=== PATIENT | female | born 1950 | race Caucasian/White ===

== ENCOUNTER 2018-05-09 11:23 | Inpatient (IN) ==
--- NOTE | 2018-05-09 11:44 | Emergency Department Note ---
Disposition Clinical Impression: Elevated d-dimer, Elevated brain natriuretic peptide (BNP) level Dyspnea Qualifiers: Dyspnea type: orthopnea Qualified Code(s): R06.01 - Orthopnea CHF exacerbation Qualifiers: Heart failure type: unspecified Qualified Code(s): I50.9 - Heart failure, unspecified Disposition: Admitted As Inpatient Condition: Good Referrals: Sara Palencia, FINANCIAL UNDERWRITER [Primary Care Provider] - Forms: ED Satisfaction Letter Time of Disposition: 14:05 General Adult HPI - General Stated complaint: VERONICA Time Seen by Provider: 05/09/18 11:25 Source: patient, EMS Mode of arrival: EMS Limitations: no limitations Nursing Notes Reviewed: Yes Vital Signs Reviewed: Yes - History of Present Illness HPI Narrative: Patient is a 67 year old female presents emergency department for shortness of breath. Patient states is been ongoing for a couple weeks. Patient states that her shortness of breath seems to be getting worse. Patient states that she does have a history of congestive heart failure when she lays flat her symptoms do get worse. Patient states that she really has not been coughing or having having any chest pain. Patient states that she does not have a history of COPD. Patient states that her shortness of breath gets worse when she lays flat. Patient states that she has been having to sleep somewhat upright. Pain Scale: 0 - Related Data Home Medications Medication Instructions Recorded Confirmed Albuterol Sulfate [Ventolin Hfa] 18 gm IH QID 05/09/18 05/09/18 Aspirin [Adult Aspirin Regimen] 81 mg PO DAILY 05/09/18 05/09/18 Carvedilol [Coreg] 25 mg PO BID 05/09/18 05/09/18 FLUoxetine HCl [Sarafem] 20 mg PO DAILY 05/09/18 05/09/18 Glimepiride [Amaryl] 4 mg PO QAM 05/09/18 05/09/18 Metformin HCl [Glucophage] 1,000 mg PO BIDWM 05/09/18 05/09/18 Pravastatin Sodium [Pravachol] 80 mg PO DAILY 05/09/18 05/09/18 Spironolactone [Aldactone] 25 mg PO BID 05/09/18 05/09/18 Tizanidine HCl 4 mg PO HS 05/09/18 05/09/18 traZODone [TraZODone] 50 mg PO HS 05/09/18 05/09/18 Allergies Allergy/AdvReac Type Severity Reaction Status Date / Time No Known Allergies Allergy Verified 05/09/18 14:04 All systems ED: reviewed and negative except as stated. Constitutional: Denies: fever Cardiovascular: Denies: chest pain Respiratory: Reports: cough, dyspnea, sputum production Gastrointestinal: Denies: abdominal pain, nausea, vomiting Past Medical History - Past Medical History Medical history: Reports: CHF, diabetes, hyperlipidemia, myocardial infarction Surgical history: Reports: non-contributory Psychiatric history: Reports: no psych history - Social History Smoking Status: Former smoker Smokeless Tobacco Status: No Alcohol use: Reports: none Drug use: Reports: none Physical Exam - General Limitations: no limitations General appearance: alert Course Vital Signs Temperature 98.8 F 05/09/18 11:28 Pulse Rate 55 05/09/18 11:28 Respiratory Rate 22 05/09/18 11:28 Blood Pressure 152/55 05/09/18 11:28 O2 Sat by Pulse Oximetry 93 05/09/18 11:28 Temperature 98.8 F 05/09/18 11:28 Pulse Rate 52 05/09/18 13:55 Respiratory Rate 16 05/09/18 13:55 Blood Pressure 136/62 05/09/18 13:55 O2 Sat by Pulse Oximetry 93 05/09/18 13:55 Oxygen Delivery Oxygen Delivery Nasal Cannula Medical Decision Making - MDM Narrative Medical decision making narrative: Due the patient presents emergency room with increased shortness breath obtain basic laboratory testing as well as chest x-ray EKG. did have a d-dimer that was elevated at 831. A CTA was performed of the chest which showed no evidence of pulmonary emboli. There was evidence of interstitial edema. Patient does have a mildly elevated BNP of 117. This is above the patient's baseline. Patient does have some mild peripheral edema. Due to the patient having history of orthopnea and shortness of breath with these findings on laboratory and imaging testing I feel this is likely a CHF exacerbation. Patient was given 40 mg of IV Lasix. Patient will require admission to the hospital for further evaluation and management. I called and spoke with the admitting hospitalist and he is accepted the patient to their service. Patient be admitted to the hospital this time for further evaluation management. - Medical Records Medical records reviewed: Yes I reviewed the patient's medical records. - Lab Data Lab results reviewed: Yes I reviewed the patient's lab results. Result diagrams: 05/09/18 11:55 05/09/18 11:55 Lab Results 05/09/18 05/09/18 05/09/18 Range/Units 11:55 11:55 11:55 WBC 4.9 (4.3-11.1) K/mcL RBC 4.48 (3.82-4.97) M/mcL Hgb 11.7 (11.5-15.4) g/dL Hct 38.7 (35.3-44.9) % MCV 86.4 (83.0-100.0) fL MCH 26.1 L (28.0-33.3) pg MCHC 30.2 L (31.6-35.5) g/dL RDW 14.4 (11.5-14.5) % Plt Count 199 (140-400) K/mcL MPV 10.4 (9.4-12.4) fL Immature Gran % 0.2 (0-4) % Seg Neutrophils % 70.8 % Lymphocytes % 20.3 % Monocytes % 6.7 % Eosinophils % 1.8 % Basophils % 0.2 % Neutrophils # 3.5 (1.6-8.9) K/mcL Lymphocytes # 1.0 (0.6-4.6) K/mcL Monocytes # 0.3 (0.0-1.3) K/mcL Eosinophils # 0.1 (0.0-0.6) K/mcL Basophils # 0.0 (0.0-0.2) K/mcL D-Dimer 816 H (0-500) ng/mLFEU Sodium 139 (136-145) mEq/L Potassium 4.9 (3.5-5.1) mEq/L Chloride 103 (98-107) mEq/L Carbon Dioxide 29 (23-29) mEq/L BUN 24 H (8-23) mg/dL Creatinine 0.95 (0.60-1.20) mg/dL Est GFR ( Amer) > 60 (> 60) Est GFR (Non-Af Amer) 59 L (> 60) BUN/Creatinine Ratio 25 (6-26) Glucose 192 H (70-105) mg/dL Calculated Osmolality 297 (280-300) Lactic Acid (0.5-2.2) mmol/L Calcium 9.6 (8.6-10.3) mg/dL Troponin I < 0.03 (< 0.04) ng/mL B-Natriuretic Peptide (Less than 100) pg/mL 05/09/18 05/09/18 05/09/18 Range/Units 11:55 11:55 13:51 WBC (4.3-11.1) K/mcL RBC (3.82-4.97) M/mcL Hgb (11.5-15.4) g/dL Hct (35.3-44.9) % MCV (83.0-100.0) fL MCH (28.0-33.3) pg MCHC (31.6-35.5) g/dL RDW (11.5-14.5) % Plt Count (140-400) K/mcL MPV (9.4-12.4) fL Immature Gran % (0-4) % Seg Neutrophils % % Lymphocytes % % Monocytes % % Eosinophils % % Basophils % % Neutrophils # (1.6-8.9) K/mcL Lymphocytes # (0.6-4.6) K/mcL Monocytes # (0.0-1.3) K/mcL Eosinophils # (0.0-0.6) K/mcL Basophils # (0.0-0.2) K/mcL D-Dimer (0-500) ng/mLFEU Sodium (136-145) mEq/L Potassium (3.5-5.1) mEq/L Chloride (98-107) mEq/L Carbon Dioxide (23-29) mEq/L BUN (8-23) mg/dL Creatinine (0.60-1.20) mg/dL Est GFR ( Amer) (> 60) Est GFR (Non-Af Amer) (> 60) BUN/Creatinine Ratio (6-26) Glucose (70-105) mg/dL Calculated Osmolality (280-300) Lactic Acid 1.2 0.8 (0.5-2.2) mmol/L Calcium (8.6-10.3) mg/dL Troponin I (< 0.04) ng/mL B-Natriuretic Peptide 117 H (Less than 100) pg/mL - Radiology Data Radiology results reviewed: Yes I reviewed the patient's radiology results. Chest X-Ray 05/09/18 11:32 IMPRESSION: Mild interstitial changes within the lung bases with possible small effusion. The findings may be related to mild interstitial edema or infiltrate. D/ / Trevon Garcia MD / Trevon Garcia MD Interpreting Provider: Trevon Garcia MD Chest CTA 05/09/18 12:45 IMPRESSION: 1. No evidence of pulmonary embolism 2. Thickened interlobular septa suggests interstitial pulmonary edema 3. Trace pleural and pericardial effusions D/ / Dawood Rodriguez MD / Dawood Rodriguez MD Interpreting Provider: Dawood Rodriguez MD - EKG Data EKG #1 EKG attestation: Yes I reviewed and interpreted this EKG. EKG results narrative: EKG shows a sinus bradycardia that is irregular. NV interval is 152, QRS duration 99, QTC of 395. No evidence of STEMI and EKG. This is compared to previous EKG on 05/04/18. EKG #2 EKG attestation: Yes I reviewed and interpreted this EKG. EKG results narrative: EKG shows a sinus rhythm at a rate of 50 beats minute, NV interval of 145, QRS duration 87, QTc of 422. EKG was obtained at 1405.
[2018-05-09 12:06] LABS: Basophils % 0.2 %; Eosinophils # 0.1 K/mcL (0.0-0.6); Eosinophils % 1.8 %; Hematocrit 38.7 % (35.3-44.9); Hemoglobin 11.7 g/dL (11.5-15.4); Immature Granulocytes % 0.2 % (0-4); Lymphocytes % 20.3 %; Mean Corpuscular HGB Conc 30.2 g/dL (31.6-35.5); Mean Corpuscular Hemoglobin 26.1 pg (28.0-33.3); Mean Corpuscular Volume 86.4 fL (83.0-100.0); Mean Platelet Volume 10.4 fL (9.4-12.4); Monocytes # 0.3 K/mcL (0.0-1.3); Monocytes % 6.7 %; Neutrophils # 3.5 K/mcL (1.6-8.9); Platelet Count 199 K/mcL (140-400); Red Blood Count 4.48 M/mcL (3.82-4.97); Red Cell Distribution Width 14.4 % (11.5-14.5); Segmented Neutrophils % 70.8 %
[2018-05-09 12:27] LABS: Troponin I < 0.03 ng/mL (< 0.04)
[2018-05-09 12:37] LABS: BUN/Creatinine Ratio 25 (6-26); Blood Urea Nitrogen 24 mg/dL (8-23); Calcium 9.6 mg/dL (8.6-10.3); Carbon Dioxide 29 mEq/L (23-29); Chloride 103 mEq/L (98-107); Glucose 192 mg/dL (70-105); Osmolality,Calculated 297 (280-300); Potassium 4.9 mEq/L (3.5-5.1); Sodium 139 mEq/L (136-145); eGFR For Non-African Americans 59 (> 60)
[2018-05-09] MEDS ORDERED: Isovue-370 500 ML INFUS..BTL IV ONE (12:45)
[2018-05-09] MEDS ORDERED: methylPREDNISolone 125 MG/2 ML VIAL IVP ONE (12:45)
[2018-05-09] MEDS ORDERED: Ipratropium/Albuterol Neb 3 ML IH ONE (12:45)
--- NOTE | 2018-05-09 13:40 | Emergency Department Note ---
Disposition Clinical Impression: Dyspnea Disposition: Admitted As Inpatient Condition: Good Referrals: Sara Palencia, SERGE [Primary Care Provider] - Time of Disposition: 13:40 General Adult HPI - General Chief complaint: ED Shortness of Breath/Dyspnea Stated complaint: VERONICA Time Seen by Provider: 05/09/18 11:25 Source: patient, EMS Mode of arrival: EMS Limitations: no limitations - History of Present Illness Pain Scale: 0 - Related Data Previous Rx's Medication Instructions Recorded Amoxicillin [Amoxil] 2 cap PO Q8HR #30 capsule 06/25/15 Cefdinir [Omnicef] 300 mg PO BID #20 capsule 07/14/15 Hydrocodone/Acetaminophen [[place] 1 tab PO Q6H PRN #10 tab 07/14/15 5-325 Tablet] HYDROcodone/Acet 5/325 mg [[place] 1 - 2 tab PO Q6H PRN 3 Days #12 tab 10/08/17 5-325 mg] Allergies Allergy/AdvReac Type Severity Reaction Status Date / Time No Known Allergies Allergy Verified 06/25/15 16:50 Past Medical History - Past Medical History Medical history: Reports: CHF, diabetes, hyperlipidemia, myocardial infarction Surgical history: Reports: non-contributory Psychiatric history: Reports: no psych history - Social History Smoking Status: Former smoker Smokeless Tobacco Status: No Alcohol use: Reports: none Drug use: Reports: none Physical Exam - General Limitations: no limitations General appearance: alert Course Vital Signs Temperature 98.8 F 05/09/18 11:28 Pulse Rate 55 05/09/18 11:28 Respiratory Rate 22 05/09/18 11:28 Blood Pressure 152/55 05/09/18 11:28 O2 Sat by Pulse Oximetry 93 05/09/18 11:28 Temperature 98.8 F 05/09/18 11:28 Pulse Rate 55 05/09/18 11:28 Respiratory Rate 22 05/09/18 11:28 Blood Pressure 152/55 05/09/18 11:28 O2 Sat by Pulse Oximetry 94 05/09/18 11:35 Oxygen Delivery Oxygen Delivery Nasal Cannula Medical Decision Making - Lab Data Result diagrams: 05/09/18 11:55 05/09/18 11:55 Lab Results 05/09/18 05/09/18 05/09/18 Range/Units 11:55 11:55 11:55 WBC 4.9 (4.3-11.1) K/mcL RBC 4.48 (3.82-4.97) M/mcL Hgb 11.7 (11.5-15.4) g/dL Hct 38.7 (35.3-44.9) % MCV 86.4 (83.0-100.0) fL MCH 26.1 L (28.0-33.3) pg MCHC 30.2 L (31.6-35.5) g/dL RDW 14.4 (11.5-14.5) % Plt Count 199 (140-400) K/mcL MPV 10.4 (9.4-12.4) fL Immature Gran % 0.2 (0-4) % Seg Neutrophils % 70.8 % Lymphocytes % 20.3 % Monocytes % 6.7 % Eosinophils % 1.8 % Basophils % 0.2 % Neutrophils # 3.5 (1.6-8.9) K/mcL Lymphocytes # 1.0 (0.6-4.6) K/mcL Monocytes # 0.3 (0.0-1.3) K/mcL Eosinophils # 0.1 (0.0-0.6) K/mcL Basophils # 0.0 (0.0-0.2) K/mcL D-Dimer 816 H (0-500) ng/mLFEU Sodium 139 (136-145) mEq/L Potassium 4.9 (3.5-5.1) mEq/L Chloride 103 (98-107) mEq/L Carbon Dioxide 29 (23-29) mEq/L BUN 24 H (8-23) mg/dL Creatinine 0.95 (0.60-1.20) mg/dL Est GFR ( Amer) > 60 (> 60) Est GFR (Non-Af Amer) 59 L (> 60) BUN/Creatinine Ratio 25 (6-26) Glucose 192 H (70-105) mg/dL Calculated Osmolality 297 (280-300) Lactic Acid (0.5-2.2) mmol/L Calcium 9.6 (8.6-10.3) mg/dL Troponin I < 0.03 (< 0.04) ng/mL B-Natriuretic Peptide (Less than 100) pg/mL 05/09/18 05/09/18 Range/Units 11:55 11:55 WBC (4.3-11.1) K/mcL RBC (3.82-4.97) M/mcL Hgb (11.5-15.4) g/dL Hct (35.3-44.9) % MCV (83.0-100.0) fL MCH (28.0-33.3) pg MCHC (31.6-35.5) g/dL RDW (11.5-14.5) % Plt Count (140-400) K/mcL MPV (9.4-12.4) fL Immature Gran % (0-4) % Seg Neutrophils % % Lymphocytes % % Monocytes % % Eosinophils % % Basophils % % Neutrophils # (1.6-8.9) K/mcL Lymphocytes # (0.6-4.6) K/mcL Monocytes # (0.0-1.3) K/mcL Eosinophils # (0.0-0.6) K/mcL Basophils # (0.0-0.2) K/mcL D-Dimer (0-500) ng/mLFEU Sodium (136-145) mEq/L Potassium (3.5-5.1) mEq/L Chloride (98-107) mEq/L Carbon Dioxide (23-29) mEq/L BUN (8-23) mg/dL Creatinine (0.60-1.20) mg/dL Est GFR ( Amer) (> 60) Est GFR (Non-Af Amer) (> 60) BUN/Creatinine Ratio (6-26) Glucose (70-105) mg/dL Calculated Osmolality (280-300) Lactic Acid 1.2 (0.5-2.2) mmol/L Calcium (8.6-10.3) mg/dL Troponin I (< 0.04) ng/mL B-Natriuretic Peptide 117 H (Less than 100) pg/mL Attestation Statement - Attestation Attestation: I examined this patient and my medical decision-making was reviewed with the Resident Physician. I agree with the documented findings, disposition and treatment plan as described except to the extent set forth below. 67 year old female presents to the ED with complaints of dyspnea and does not waer supplemental oxygen at home and has been experiencing increased exxertional dyspnea and cough at home. Gudelia sureshntly she is being ecvaluatd for COPD and has an elevated D-dimer and we will obtain a CTA to rule out PE and will likely be admitted for COPD excebration or r/o ACS workup.
[2018-05-09] MEDS ORDERED: Furosemide 40 MG/4 ML VIAL IVP ONE (13:52)
[2018-05-09] MEDS ORDERED: Naloxone 0.4 MG/ML INJ IVP PRN (14:44)
--- NOTE | 2018-05-09 17:55 | Internal Med History&Physical ---
Date of Encounter: 05/09/18 Time of Encounter: 17:30 Internal Medicine - H&P: HPI Chief complaint: Shortness of breath of 3 weeks duration History of present illness: Ms. Lloyd is a 67 year old female with pmh of diastolic CHF, diabetes, hyperlipidemia presenting with complaints of shortness of breath and lower extremity swelling of 3 weeks duration. Patient says she takes lasix at home and has been compliant. She complains of progressively worsening shortness of breath with decreased exercise tolerance. She woke up this am and couldn't breathe at around 3am and that's why she came to the ER. She denies any chest pain, fevers or chills. In the ER, a chest xray was done showing pulmonary edema and an effusion. She is being admitted for acute CHF Past Med Surg Social Fam HX - Past Medical History Medical history: CHF, diabetes, hyperlipidemia, myocardial infarction Psychiatric history: no psych history - Past Surgical History Surgical History: non-contributory - Social History Smoking Status: Former smoker Smokeless Tobacco Status: No Alcohol use: none Drug use: none - Family History Mother Age: 84 Living Status: Still Living Hx Family Cardiac Disorders: Yes Hx Family Respiratory Disorders: Yes Hx Family Cancer: No Internal Medicine - H&P: Meds Albuterol Sulfate [Ventolin Hfa] 18 gm IH QID 05/09/18 [History] Aspirin [Adult Aspirin Regimen] 81 mg PO DAILY 05/09/18 [History] Carvedilol [Coreg] 25 mg PO BID 05/09/18 [History] FLUoxetine HCl [Sarafem] 20 mg PO DAILY 05/09/18 [History] Glimepiride [Amaryl] 4 mg PO QAM 05/09/18 [History] Metformin HCl [Glucophage] 1,000 mg PO BIDWM 05/09/18 [History] Pravastatin Sodium [Pravachol] 80 mg PO DAILY 05/09/18 [History] Spironolactone [Aldactone] 25 mg PO BID 05/09/18 [History] Tizanidine HCl 4 mg PO HS 05/09/18 [History] traZODone [TraZODone] 50 mg PO HS 05/09/18 [History] Allergy/AdvReac Type Severity Reaction Status Date / Time No Known Allergies Allergy Verified 05/09/18 14:04 All Systems PM: A 10-system review of systems was performed and is negative for pertinent findings except as documented above in the HPI. - Constitutional Constitutional: no chills, no fever(s), no night sweats - EENT Eyes: no change in vision, no discharge, no pain, no photophobia Ears: no ear discharge, no ear pain, no tinnitus Nose, mouth and throat: no dysphagia, no nasal discharge, no neck pain, no sore throat - Cardiovascular Cardiovascular ROS IM: dyspnea, no chest pain, no diaphoresis, no lightheadedness, no palpitations, no syncope - Respiratory Respiratory: dyspnea, no cough, no wheezing, no excessive phlegm production - Gastrointestinal Gastrointestinal: no abdominal pain, no diarrhea, no hematemesis, no hematochezia, no melena, no nausea, no vomiting - Genitourinary Genitourinary: no change in urinary stream, no dysuria, no flank pain, no hematuria - Musculoskeletal Musculoskeletal ROS IM: no numbness, no tingling - Integumentary Integumentary IM: no rash, no unusual bruising - Neurological Neurological ROS: no confusion, no convulsions, no focal weakness, no numbness, no tingling, no tremor(s) - Hematologic/Lymphatic Hematologic/Lymphatic: no easy bruising - Constitutional Vitals: Temp Pulse Resp BP Pulse Ox 98.6 F 56 16 149/78 90 05/09/18 15:31 18 15:31 05/09/18 16:00 05/09/18 15:31 05/09/18 16:00 Exam: NAD - Head Head exam: Present: atraumatic, normocephalic - Eye Eye exam: Present: PERRL, conjuntiva pink, sclera anicteric Pupils: Present: PERRL - Neck Neck exam general surgery: Present: supple, trachea midline. Absent: lymphadenopathy - Respiratory Respiratory exam: Present: decreased breath sounds. Absent: accessory muscle use, rales, rhonchi, wheezes Additional comments: Bilateral crackles - Cardiovascular Cardiovascular exam: Present: RRR, +S1, +S2. Absent: diastolic murmur, gallop, rubs, systolic murmur - GI/Abdominal GI/Abdominal exam: Present: normal bowel sounds, soft, no peritoneal signs. Absent: distended, tenderness - Extremities Exam Extremities exam: Present: warm, radial pulses palpable and symmetrical. Absent: calf tenderness, cyanotic, pedal edema - Neurological Exam Neurological exam: Present: CN II-XII intact, oriented X3, no focal deficits. Absent: pronater drift, facial droop, speech deficit - Skin Skin exam: Present: dry, intact Internal Med - H&P Results - Labs CBC & Chem 7: 05/09/18 11:55 05/09/18 11:55 Labs: Short CBC 05/09/18 Range/Units 11:55 WBC 4.9 (4.3-11.1) K/mcL Hgb 11.7 (11.5-15.4) g/dL Hct 38.7 (35.3-44.9) % Plt Count 199 (140-400) K/mcL Neutrophils # 3.5 (1.6-8.9) K/mcL BMP 05/09/18 11:55 Sodium 139 Potassium 4.9 Chloride 103 Carbon Dioxide 29 BUN 24 H Creatinine 0.95 Glucose 192 H Calcium 9.6 Cardiac Enzymes 05/09/18 Range/Units 11:55 Troponin I < 0.03 (< 0.04) ng/mL - Impressions ITS Impressions Chest X-Ray 05/09/18 11:32 IMPRESSION: Mild interstitial changes within the lung bases with possible small effusion. The findings may be related to mild interstitial edema or infiltrate. D/ / Trevon Garcia MD / Trevon Garcia MD Interpreting Provider: Trevon Garcia MD Chest CTA 05/09/18 12:45 IMPRESSION: 1. No evidence of pulmonary embolism 2. Thickened interlobular septa suggests interstitial pulmonary edema 3. Trace pleural and pericardial effusions D/ / Dawood Rodriguez MD / Dawood Rodriguez MD Interpreting Provider: Dawood Rodriguez MD - Assessment and plan (1) CHF exacerbation Current Visit: Yes Status: Acute Assessment and plan: Pt has acute worsening of chronic diastolic CHF. will start on lasix 40mg IV BID Continue beta blockers. Monitor ins and outs. Cardiac diet. Daily weights Qualifiers: Heart failure type: diastolic Qualified Code(s): I50.33 - Acute on chronic diastolic (congestive) heart failure (2) Diabetes Current Visit: Yes Status: Acute Assessment and plan: Continue glimepiride and sliding scale insulin Qualifiers: Diabetes mellitus type: type 2 Qualified Code(s): E11.9 - Type 2 diabetes mellitus without complications (3) Dyslipidemia Current Visit: Yes Status: Acute Assessment and plan: Resume pravastatin (4) DVT prophylaxis Current Visit: Yes Status: Acute Assessment and plan: Continue heparin - Time Spent With Patient Total time spent is greater than 50% in coordination of care (as documented) at patient's floor/unit and/or counseling patient:
[2018-05-09] MEDS ORDERED: D5% in Water 1,000 ML IVC PRN (18:14)
[2018-05-09] MEDS ORDERED: *HR* Dextrose 50 % in Water (Syg) 50 ML SYRINGE IVP PRN (18:14)
[2018-05-09] MEDS ORDERED: Dextrose Gel 15 GM/37.5 ML TUBE PO PRN ×2 (18:14)
[2018-05-09] MEDS: Insulin LISPRO 300 UNITS/3 ML VIAL SQ SCH ×2 (18:38→20:43)
[2018-05-09] MEDS: *HR* Heparin 5,000 UNIT/ML VIAL SQ SCH (18:40)
[2018-05-09] MEDS: Spironolactone 25 MG TABLET PO SCH (20:23)
[2018-05-09] MEDS: Furosemide 40 MG/4 ML VIAL IVP SCH (20:23)
[2018-05-09] MEDS: tiZANidine 4 MG TABLET PO SCH (20:24)
[2018-05-09] MEDS: traZODone 50 MG TABLET PO SCH (20:24)
[2018-05-10 04:53] LABS: Basophils % 0.2 %; Hematocrit 39.8 % (35.3-44.9); Immature Granulocytes % 0.3 % (0-4); Lymphocytes # 0.7 K/mcL (0.6-4.6); Lymphocytes % 11.6 %; Mean Corpuscular HGB Conc 30.2 g/dL (31.6-35.5); Mean Corpuscular Volume 86.3 fL (83.0-100.0); Mean Platelet Volume 10.7 fL (9.4-12.4); Monocytes # 0.3 K/mcL (0.0-1.3); Monocytes % 5.4 %; Neutrophils # 4.9 K/mcL (1.6-8.9); Platelet Count 246 K/mcL (140-400); Red Blood Count 4.61 M/mcL (3.82-4.97); Red Cell Distribution Width 14.2 % (11.5-14.5); Segmented Neutrophils % 82.5 %
[2018-05-10] MEDS: *HR* Heparin 5,000 UNIT/ML VIAL SQ SCH ×2 (04:56→18:03)
[2018-05-10 05:13] LABS: Calcium 9.8 mg/dL (8.6-10.3); Magnesium 1.9 mg/dL (1.6-2.6); Phosphorous 5.3 mg/dL (2.7-4.5); Potassium 4.5 mEq/L (3.5-5.1)
[2018-05-10] MEDS: Insulin LISPRO 300 UNITS/3 ML VIAL SQ SCH ×4 (07:52→20:25)
[2018-05-10] MEDS: Spironolactone 25 MG TABLET PO SCH (08:07)
[2018-05-10] MEDS: Aspirin Enteric Coated 81 MG Tablet PO SCH (08:07)
[2018-05-10] MEDS: FLUoxetine 20 MG CAPSULE PO SCH (08:07)
[2018-05-10] MEDS: *HR* Glimepiride 4 MG TABLET PO SCH (08:07)
[2018-05-10] MEDS: Furosemide 40 MG/4 ML VIAL IVP SCH (08:07)
--- NOTE | 2018-05-10 11:07 | Internal Med Progress Note ---
Hospitalist Progress Note - Encounter Date of Encounter: 05/10/18 Time of Encounter: 11:05 - Subjective Interval History: Ms. Lloyd is a 67 year old female with pmh of diastolic CHF, diabetes, hyperlipidemia, morbid obesity and possible sleep apnea pt presented to ER with complaints of shortness of breath and lower extremity swelling of 3 weeks dura tion. She complains of progressively worsening shortness of breath with decreased exercise tolerance. In the ER, a chest xray was done showing pulmonary edema and an effusion. 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 Started her on aggressive IV diuresis with Lasix. Patient states she is feeling little better today. Still having shortness of breath and dyspnea on exertion. Her bilateral lower extremity edema improved. Currently she is on 2 lit oxygen through nasal cannula - Exam Vitals: Temp Pulse Resp BP Pulse Ox 98.6 F 56 16 141/70 90 05/10/18 07:28 05/10/18 07:28 05/10/18 10:24 05/10/18 07:28 05/10/18 10:24 Exam: Gen: Alert, awake, Oriented to time,place and person Chest: Diminished breath sounds B/L, mild wheezing, No crackles, No rales Heart: S1S2+ RRR No murmurs Abd: Soft, NT, BS +, No organomegaly Ext: trace edema, pulses are palpable, No calf tenderness Neuro : Benign findings Skin: No rash. - Assessment and Plan (1) CHF exacerbation Current Visit: Yes Status: Acute Assessment and Plan: Reviewed her echocardiogram from 03/2018 which showed preserved LVEF and mild left ventricular diastolic dysfunction patient does have chronic diastolic dysfunction with the current exacerbation her symptoms improved with IV Lasix however her creatinine went up little bit today so will hold Lasix today and trend on Cr Cont home med ASA, beta kenyatta and Statin (2) Acute respiratory failure with hypoxia Current Visit: Yes Status: Acute Assessment and Plan: Due to CHF exacerbation also concerning for possible COPD/emphysema/hypoventilation syndrome/sleep apnea placed her on bronchodilator therapy May need home oxygen evaluation her current pulse oxy was 82 on RA which I personally checked (3) Dyslipidemia Current Visit: Yes Status: Acute Assessment and Plan: Resume pravastatin (4) DVT prophylaxis Current Visit: Yes Status: Acute Assessment and Plan: Continue heparin (5) ALIN (acute kidney injury) Current Visit: Yes Status: Acute Assessment and Plan: Due to aggressive diagnosis held Lasix and Aldactone avoid nephrotoxic medication (6) Diabetes Current Visit: Yes Status: Acute Assessment and Plan: Continue glimepiride and sliding scale insulin - Time Spent with Patient Total time spent is greater than 50% in coordination of care (as documented) at patient's floor/unit and/or counseling patient: Internal Medicine: Result - Labs CBC & Chem 7: 05/10/18 04:33 05/10/18 04:33 Labs: Short CBC 05/09/18 05/10/18 Range/Units 11:55 04:33 WBC 4.9 5.9 (4.3-11.1) K/mcL Hgb 11.7 12.0 (11.5-15.4) g/dL Hct 38.7 39.8 (35.3-44.9) % Plt Count 199 246 (140-400) K/mcL Neutrophils # 3.5 4.9 (1.6-8.9) K/mcL BMP 05/09/18 05/10/18 11:55 04:33 Sodium 139 138 Potassium 4.9 4.5 Chloride 103 95 L Carbon Dioxide 29 33 H BUN 24 H 34 H Creatinine 0.95 1.35 H Glucose 192 H 274 H Calcium 9.6 9.8 Cardiac Enzymes 05/09/18 Range/Units 11:55 Troponin I < 0.03 (< 0.04) ng/mL - ABG Interpretation ABG results: PT/INR, D-dimer D-Dimer 816 ng/mLFEU (0-500) H 05/09/18 11:55 - Impressions Impressions Chest X-Ray 05/09/18 11:32 IMPRESSION: Mild interstitial changes within the lung bases with possible small effusion. The findings may be related to mild interstitial edema or infiltrate. D/ / Trevon Garcia MD / Trevon Garcia MD Interpreting Provider: Trevon Garcia MD Chest CTA 05/09/18 12:45 IMPRESSION: 1. No evidence of pulmonary embolism 2. Thickened interlobular septa suggests interstitial pulmonary edema 3. Trace pleural and pericardial effusions D/ / Dawood Rodriguez MD / Dawood Rodriguez MD Interpreting Provider: Dawood Rodriguez MD Consult Discharge Plan - Plan Referrals: Sara Palencia, STOCK ORDER LISTER [Primary Care Provider] - (1) CHF exacerbation Qualifiers: Heart failure type: diastolic Qualified Code(s): I50.33 - Acute on chronic diastolic (congestive) heart failure (6) Diabetes Qualifiers: Diabetes mellitus type: type 2 Qualified Code(s): E11.9 - Type 2 diabetes mellitus without complications
[2018-05-10] MEDS: tiZANidine 4 MG TABLET PO SCH (21:29)
[2018-05-10] MEDS: traZODone 50 MG TABLET PO SCH (21:29)
[2018-05-11 04:01] LABS: Calcium 9.6 mg/dL (8.6-10.3); Potassium 4.2 mEq/L (3.5-5.1)
[2018-05-11] MEDS: *HR* Heparin 5,000 UNIT/ML VIAL SQ SCH (05:55)
[2018-05-11] MEDS: Aspirin Enteric Coated 81 MG Tablet PO SCH (08:57)
[2018-05-11] MEDS: *HR* Glimepiride 4 MG TABLET PO SCH (08:57)
[2018-05-11] MEDS: Insulin LISPRO 300 UNITS/3 ML VIAL SQ SCH ×2 (08:57→11:39)
[2018-05-11] MEDS: FLUoxetine 20 MG CAPSULE PO SCH (08:57)
[2018-05-11 11:17] VITALS: BP 126/62
--- NOTE | 2018-05-11 12:45 | Discharge Summary ---
- NOTES TO OUTPATIENT PROVIDER Notes to Outpatient Provider: f/u with PCP in one week. Please go for BMP on Tuesday. Stop taking Aldactone. We placed you on Lasix 20mg PO Daily, which you can start taking from Tuesday. Check daily weights if you gain more than 2 lbs please take an extra dose of Lasix. Date of Encounter: 05/11/18 Time of Encounter: 12:42 - Discharge Diagnosis (1) CHF exacerbation Priority: Primary Status: Acute Qualifiers: Heart failure type: diastolic Qualified Code(s): I50.33 - Acute on chronic diastolic (congestive) heart failure (2) Acute respiratory failure with hypoxia Priority: Primary Status: Acute (3) Dyslipidemia Priority: Secondary Status: Acute (4) DVT prophylaxis Priority: Secondary Status: Acute (5) ALIN (acute kidney injury) Priority: Secondary Status: Acute (6) Diabetes Priority: Secondary Status: Acute Qualifiers: Diabetes mellitus type: type 2 Qualified Code(s): E11.9 - Type 2 diabetes mellitus without complications Hospital course: Ms. Lloyd is a 67 year old female with pmh of diastolic CHF, diabetes, hyperlipidemia, morbid obesity and possible sleep apnea pt presented to ER with complaints of shortness of breath and lower extremity swelling of 3 weeks duration. She complains of progressively worsening shortness of breath with decreased exercise tolerance. In the ER, a chest xray was done showing pulmonary edema and an effusion. 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 Started her on aggressive IV diuresis with Lasix. Her bilateral lower extremity edema improved. Her SOB also improved. She is currently on 2 lit oxygen through nasal cannula, does need to go home on 2 lit o2. Her hypoxa us due to multifactorial with possible COPD/emphysema/hypoventilation syndrome/sleep apnea. She did have mild ALIN due to aggressive IV diuresis. Recommend to stop taking Aldactone, she can take Lasix from Tuesday. - Time Spent with Patient Total time spent providing and/or coordinating discharge services: - Discharge Medications Prescriptions: Furosemide [Lasix] 20 mg PO DAILY #30 tablet Home Medications: Albuterol Sulfate [Ventolin Hfa] 18 gm IH QID 05/09/18 [History] Aspirin [Adult Aspirin Regimen] 81 mg PO DAILY 05/09/18 [History] Carvedilol [Coreg] 25 mg PO BID 05/09/18 [History] FLUoxetine HCl [Sarafem] 20 mg PO DAILY 05/09/18 [History] Glimepiride [Amaryl] 4 mg PO QAM 05/09/18 [History] Metformin HCl [Glucophage] 1,000 mg PO BIDWM 05/09/18 [History] Pravastatin Sodium [Pravachol] 80 mg PO DAILY 05/09/18 [History] Tizanidine HCl 4 mg PO HS 05/09/18 [History] traZODone [TraZODone] 50 mg PO HS 05/09/18 [History] Furosemide [Lasix] 20 mg PO DAILY #30 tablet 05/11/18 [Rx] Allergies/Adverse Reactions: Allergy/AdvReac Type Severity Reaction Status Date / Time No Known Allergies Allergy Verified 05/09/18 14:04 Date of admission: 05/11/18 09:44 Primary care physician: Sara Palencia CNP Consults: 05/10/18 09:22 Consult to Nurse Navigator [CONS] Routine Comment: CHF 05/11/18 08:35 Consult to Physical Therapy [CONS] Routine Comment: Evaluate, develop and implement POC Reason for Consult: decreased stamina, 6 minute walk test for O2 qualification Does patient have active BEDREST order?: No Is patient medically & hemodynamically stable?: Yes Patient assessed for mobility or mobilized this visit?: Yes - Constitutional Vitals: Temp Pulse Resp BP Pulse Ox 98.4 F 48 17 126/62 94 05/11/18 11:15 05/11/18 11:15 05/11/18 11:15 05/11/18 11:15 05/11/18 11:15 General appearance: Present: cooperative, A&O X 3, answers questions appropriately Exam: Gen: Alert, awake, Oriented to time,place and person Chest: Diminished breath sounds B/L, No wheezing, No crackles, No rales Heart: S1S2+ RRR No murmurs Abd: Soft, NT, BS +, No organomegaly Ext: No edema, pulses are palpable, No calf tenderness Neuro : Benign findings Skin: No rash. - Patient Status Disposition: Home, Self-Care Condition: Good Overall status at discharge: patient is back to baseline - Ambulatory Orders Ambulatory Orders: Basic Metabolic Panel [CHEM] Time Frame: 05/15/18, Facility: [facility], Location: Lab - Discharge Instructions Follow Up With: Arie Friend MD [Partnered Physician] - 05/18/18 2:45 pm (Please arrive to appointment 30 minutes before appointment to fill out paperwork. Please bring all insurance cards, ID cards, and all medications within their containers. This office requires you to reschedule or cancel within 24 hours of appointment time. ) Additional Instructions: Call [facility] when you get home to have oxygen equipment delivered. [phone] - Diet and Activity Activity: increase activity as tolerated, wear oxygen at all times Diet: low salt diet
--- NOTE | 2018-05-11 18:34 | Electrocardiograph Report ---
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
--- NOTE | 2018-05-11 18:41 | Electrocardiograph Report ---
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
== END 2018-05-11 14:31 | disposition home or self-care (01) | DRG 291 ==
LOC: 3BNU 11:23 → EMEROOARM 11:23 → SUATTDRO 14:25 → 3BNU 15:15
PROVIDERS: ADMIT Student in an Organized Health Care Education/Training Program; ATTEND Family Medicine

== ENCOUNTER 2018-10-28 23:49 | Inpatient (IN) ==
--- NOTE | 2018-10-29 00:03 | Emergency Department Note ---
Disposition Clinical Impression: Elevated troponin Congestive heart failure Qualifiers: Heart failure type: unspecified Heart failure chronicity: acute on chronic Qualified Code(s): I50.9 - Heart failure, unspecified Disposition: Admitted As Inpatient Condition: Fair Referrals: NONE,PCP [Non-Partnered Physician] - Forms: ED Satisfaction Letter Time of Disposition: 01:38 SOB HPI - General Chief Complaint: ED Shortness of Breath/Dyspnea Stated Complaint: VERONICA/hx copd/chf Time Seen by Provider: 10/29/18 00:00 Source: patient Mode of arrival: ambulatory Limitations: no limitations Nursing Notes Reviewed: Yes Vital Signs Reviewed: Yes - History of Present Illness Patient is a 68-year-old female presenting with dyspnea. Patient has history of diabetes mellitus type 2, COPD, CHF, hypertension and hyperlipidemia. Over the past week, patient has had increased shortness of breath, she was seen by her primary care provider last week who increased her at home oxygen from 2 L nasal cannula to 4 L nasal cannula. She states this is not an changed her shortness of breath. This morning when she woke up, she had difficulty getting out of bed secondary to her dyspnea. When she went to the restroom, she was unable to get out of the bathroom secondary to this. She stated that she had to wait in the restroom until she was able to catch her breath. This continued throughout the day and became progressively worse. She does have to prop herself up with pillows which is gotten worse over the past week, she currently sleeps sitting straight up. She denies chest pain or diaphoresis, no nausea or vomiting. No recent fevers or chills. She is unchanged cough without production. No abdominal pain. No urinary symptoms. She has noticed increased lower extremity swelling. She has been taking her medications at home as prescribed. No recent medication changes. She has been using her nebulizer treatments at home. - Related Data Home Medications Medication Instructions Recorded Confirmed Albuterol Sulfate [Ventolin Hfa] 18 gm IH QID 05/09/18 10/29/18 Aspirin [Adult Aspirin Regimen] 81 mg PO DAILY 05/09/18 10/29/18 Carvedilol [Coreg] 25 mg PO BID 05/09/18 10/29/18 FLUoxetine HCl [Sarafem] 20 mg PO DAILY 05/09/18 10/29/18 Glimepiride [Amaryl] 4 mg PO QAM 05/09/18 10/29/18 Metformin HCl [Glucophage] 1,000 mg PO BIDWM 05/09/18 10/29/18 Pravastatin Sodium [Pravachol] 80 mg PO DAILY 05/09/18 10/29/18 traZODone [TraZODone] 50 mg PO HS 05/09/18 10/29/18 Allergies Allergy/AdvReac Type Severity Reaction Status Date / Time No Known Allergies Allergy Verified 10/28/18 23:59 All systems ED: reviewed and negative except as stated. Review of Systems: As Per HPI Constitutional: Denies: fever, chills ENT ED: Denies: congestion Cardiovascular: Reports: dyspnea on exertion, edema. Denies: chest pain, palpitations, syncope Respiratory: Reports: cough, dyspnea. Denies: wheezes, hemoptysis, sputum production Gastrointestinal: Denies: abdominal pain, nausea, vomiting, diarrhea, hematemesis Genitourinary: Denies: dysuria Musculoskeletal: Denies: back pain Integumentary: Denies: rash Neurological: Denies: headache, weakness, numbness, confusion Endocrine: Denies: fatigue Past Medical History - Past Medical History Medical history: Reports: CHF, COPD, diabetes, hyperlipidemia, myocardial infarction Surgical history: Reports: non-contributory Psychiatric history: Reports: no psych history - Social History Smoking Status: Former smoker Smokeless Tobacco Status: No Alcohol use: Reports: none Drug use: Reports: none Physical Exam - General Limitations: no limitations General appearance: alert, in no apparent distress - Head Head exam: atraumatic, normocephalic, normal inspection - Eye Eye exam: Present: normal appearance, PERRL, EOMI - ENT ENT exam: normal exam, normal oropharynx, mucous membranes moist - Neck Neck exam: Present: normal inspection, full ROM, trachea midline - Chest Chest inspection: Present: normal inspection, symmetric chest wall rise - Respiratory Respiratory exam: Present: prolonged expiratory phase (Patient with decreased breath sounds throughout, no crackles or wheezes are heard) - Cardiovascular Cardiovascular exam: Present: regular rate, normal rhythm, normal heart sounds - Abdominal Exam Abdominal exam: Present: soft, Non-Tender. Absent: tenderness, distention, guarding, rebound, rigidity - Extremities Exam Extremities exam: Present: full ROM, normal capillary refill, pedal edema (Patient with 1+ pitting edema to the bilateral lower extremities up to the catheter). Absent: tenderness - Expanded Lower Extremity Exam Neurovascular/Tendon exam: Absent: motor deficit, sensory deficit, tendon deficit - Back Exam Back exam: Present: normal inspection, full ROM. Absent: tenderness - Neurological Exam Neurological exam: Present: alert, oriented X3 - Psychiatric Psychiatric exam: Present: normal affect, normal mood - Skin Skin exam: Present: warm, dry, intact, normal color. Absent: diaphoresis, pallor Course Vital Signs Temperature 99.6 F 10/29/18 00:04 Pulse Rate 55 10/29/18 00:04 Respiratory Rate 26 10/29/18 00:04 Blood Pressure 162/57 10/29/18 00:04 O2 Sat by Pulse Oximetry 99 10/29/18 00:04 Temperature 99.6 F 10/29/18 00:05 Pulse Rate 65 10/29/18 01:00 Respiratory Rate 24 10/29/18 01:00 Blood Pressure 156/59 10/29/18 01:00 O2 Sat by Pulse Oximetry 100 10/29/18 01:00 Oxygen Delivery Oxygen Delivery Nasal Cannula Shortness of Breath/Dyspnea - [facility] Narrative Medical decision making narrative: Patient is a 68-year-old female presenting with shortness of breath. Patient has known history of CHF and COPD. Progressive shortness of breath for the past week, currently on 4 L nasal cannula chronically at home. Significant shortness of breath with any type of exertion. She is currently satting at 100% on 4 L C no cannula here in the ER, vital signs otherwise unremarkable. She does have decreased breath sounds throughout on examination. She does have lower leg swelling at 1+. EKG shows no acute ischemic changes. She adamantly denies any chest pain. Concern for COPD versus CHF exacerbation, patient will be given Lasix 40 mg IV, DuoNeb 3 as well as Solu-Medrol. No recent fever or chills, pneumonia less likely. Chest x-ray was performed which shows some mild pulmonary edema. This is fitting per clinical picture with elevated BNP. Troponin is also elevated 0.15, patient denies chest pain however we will give the patient aspirin and advocate for trending as the patient will be admitted. Patient's BMP relatively unremarkable, CBC does show a slight drop in hemoglobin within the last month now 9.7. Patient denies any active bleeding. Following breathing treatment, patient has slightly improved breathing. However, given patient's significant exertional dyspnea, admission is appropriate. At this point in time given significant shortness of breath, we will get the patient for CHF exacerbation as well as elevated troponin. Hospitalist has been paged at [phone]. Patient agrees with disposition. - Medical Records Medical records reviewed: Yes I reviewed the patient's medical records. - Lab Data Lab results reviewed: Yes I reviewed the patient's lab results. Result diagrams: 10/29/18 00:39 10/29/18 00:39 Lab Results 10/29/18 10/29/18 10/29/18 Range/Units 00:39 00:39 00:39 WBC 5.3 (4.3-11.1) K/mcL RBC 3.61 L (3.82-4.97) M/mcL Hgb 9.7 L (11.5-15.4) g/dL Hct 32.1 L (35.3-44.9) % MCV 88.9 (83.0-100.0) fL MCH 26.9 L (28.0-33.3) pg MCHC 30.2 L (31.6-35.5) g/dL RDW 12.9 (11.5-14.5) % Plt Count 197 (140-400) K/mcL MPV 10.5 (9.4-12.4) fL Immature Gran % 0.2 (0-4) % Seg Neutrophils % 68.3 % Lymphocytes % 18.9 % Monocytes % 8.8 % Eosinophils % 3.4 % Basophils % 0.4 % Neutrophils # 3.7 (1.6-8.9) K/mcL Lymphocytes # 1.0 (0.6-4.6) K/mcL Monocytes # 0.5 (0.0-1.3) K/mcL Eosinophils # 0.2 (0.0-0.6) K/mcL Basophils # 0.0 (0.0-0.2) K/mcL Sodium 136 (136-145) mEq/L Potassium 3.6 (3.5-5.1) mEq/L Chloride 92 L (98-107) mEq/L Carbon Dioxide 40 H* (23-29) mEq/L BUN 29 H (8-23) mg/dL Creatinine 0.93 (0.60-1.20) mg/dL Est GFR ( Amer) > 60 (> 60) Est GFR (Non-Af Amer) > 60 (> 60) BUN/Creatinine Ratio 31 H (6-26) Glucose 246 H (70-105) mg/dL Calculated Osmolality 296 (280-300) Calcium 9.5 (8.6-10.3) mg/dL Troponin I 0.15 H* (< 0.04) ng/mL B-Natriuretic Peptide 271 H (Less than 100) pg/mL - Radiology Data Radiology results reviewed: Yes I reviewed the patient's radiology results. Chest X-Ray 10/29/18 00:27 IMPRESSION: Mild pulmonary edema. D/ / Chao Mcdonough MD / Chao Mcdonough MD Interpreting Provider: Chao Mcdonough MD - EKG Data EKG attestation: Yes I reviewed and interpreted this EKG. EKG results narrative: EKG was performed at 2357 ventricular rate of 62, regular rhythm, normal axis, no ST segment elevation, no depression no T-wave changes. Overall normal sinus rhythm EKG, which compared to old EKG performed on 10/01/2018, appears unchanged. S.B.A.R. - S.B.ALuis Situation: Demographics, MOA Background: Presenting Complaint, Relevant PMH, Meds, & Allergies Assessment: Vital Signs, Course and respsone to treatment, Exam Concerns, Patient/Family Expectation, Pertinant Lab Results, Outstanding Labs Recommendation: Barrier(s) to disposition, Recommendation based on pending studies, treatments, or consults S.B.A.R. Report Given to: accepted by Ebony Grady Time: 02:12
[2018-10-29] MEDS ORDERED: methylPREDNISolone 125 MG/2 ML VIAL IVP ONE (00:29)
[2018-10-29] MEDS ORDERED: Ipratropium/Albuterol Neb 3 ML IH ONE (00:29)
[2018-10-29] MEDS ORDERED: Furosemide 40 MG/4 ML VIAL IVP ONE (00:29)
--- NOTE | 2018-10-29 00:47 | Emergency Department Note ---
Disposition Clinical Impression: Elevated troponin Congestive heart failure Qualifiers: Heart failure type: unspecified Heart failure chronicity: acute on chronic Qualified Code(s): I50.9 - Heart failure, unspecified Disposition: Admitted As Inpatient Condition: Fair Time of Disposition: 01:38 General Adult HPI - General Chief complaint: ED Shortness of Breath/Dyspnea Stated complaint: VERONICA/hx copd/chf Time Seen by Provider: 10/29/18 00:00 Source: patient, EMS Limitations: no limitations Nursing Notes Reviewed: Yes Vital Signs Reviewed: Yes - History of Present Illness Pain Scale: 0 - Related Data Home Medications Medication Instructions Recorded Confirmed Albuterol Sulfate [Ventolin Hfa] 18 gm IH QID 05/09/18 10/29/18 Aspirin [Adult Aspirin Regimen] 81 mg PO DAILY 05/09/18 10/29/18 Carvedilol [Coreg] 25 mg PO BID 05/09/18 10/29/18 FLUoxetine HCl [Sarafem] 20 mg PO DAILY 05/09/18 10/29/18 Glimepiride [Amaryl] 4 mg PO QAM 05/09/18 10/29/18 Metformin HCl [Glucophage] 1,000 mg PO BIDWM 05/09/18 10/29/18 Pravastatin Sodium [Pravachol] 80 mg PO DAILY 05/09/18 10/29/18 traZODone [TraZODone] 50 mg PO HS 05/09/18 10/29/18 Allergies Allergy/AdvReac Type Severity Reaction Status Date / Time No Known Allergies Allergy Verified 10/28/18 23:59 Past Medical History - Past Medical History Medical history: Reports: CHF, COPD, coronary artery disease, diabetes, hyperlipidemia, hypertension, myocardial infarction, other Surgical history: Reports: non-contributory Psychiatric history: Reports: anxiety, depression - Social History Smoking Status: Former smoker Smokeless Tobacco Status: No Alcohol use: Reports: none Drug use: Reports: none Physical Exam - General Limitations: no limitations General appearance: alert Course Vital Signs Temperature 99.6 F 10/29/18 00:04 Pulse Rate 55 10/29/18 00:04 Respiratory Rate 26 10/29/18 00:04 Blood Pressure 162/57 10/29/18 00:04 O2 Sat by Pulse Oximetry 99 10/29/18 00:04 Temperature 99.6 F 10/29/18 00:05 Pulse Rate 65 10/29/18 01:00 Respiratory Rate 24 10/29/18 01:00 Blood Pressure 156/59 10/29/18 01:00 O2 Sat by Pulse Oximetry 100 10/29/18 01:00 Oxygen Delivery Oxygen Delivery Nasal Cannula Medical Decision Making - Medical Records Medical records reviewed: Yes I reviewed the patient's medical records. - Lab Data Lab results reviewed: Yes I reviewed the patient's lab results. Result diagrams: 10/29/18 00:39 10/29/18 00:39 Lab Results 10/29/18 10/29/18 10/29/18 Range/Units 00:39 00:39 00:39 WBC 5.3 (4.3-11.1) K/mcL RBC 3.61 L (3.82-4.97) M/mcL Hgb 9.7 L (11.5-15.4) g/dL Hct 32.1 L (35.3-44.9) % MCV 88.9 (83.0-100.0) fL MCH 26.9 L (28.0-33.3) pg MCHC 30.2 L (31.6-35.5) g/dL RDW 12.9 (11.5-14.5) % Plt Count 197 (140-400) K/mcL MPV 10.5 (9.4-12.4) fL Immature Gran % 0.2 (0-4) % Seg Neutrophils % 68.3 % Lymphocytes % 18.9 % Monocytes % 8.8 % Eosinophils % 3.4 % Basophils % 0.4 % Neutrophils # 3.7 (1.6-8.9) K/mcL Lymphocytes # 1.0 (0.6-4.6) K/mcL Monocytes # 0.5 (0.0-1.3) K/mcL Eosinophils # 0.2 (0.0-0.6) K/mcL Basophils # 0.0 (0.0-0.2) K/mcL Sodium 136 (136-145) mEq/L Potassium 3.6 (3.5-5.1) mEq/L Chloride 92 L (98-107) mEq/L Carbon Dioxide 40 H* (23-29) mEq/L BUN 29 H (8-23) mg/dL Creatinine 0.93 (0.60-1.20) mg/dL Est GFR ( Amer) > 60 (> 60) Est GFR (Non-Af Amer) > 60 (> 60) BUN/Creatinine Ratio 31 H (6-26) Glucose 246 H (70-105) mg/dL Calculated Osmolality 296 (280-300) Calcium 9.5 (8.6-10.3) mg/dL Troponin I 0.15 H* (< 0.04) ng/mL B-Natriuretic Peptide 271 H (Less than 100) pg/mL - Radiology Data Radiology results reviewed: Yes I reviewed the patient's radiology results. Chest X-Ray 10/29/18 00:27 IMPRESSION: Mild pulmonary edema. D/ / Chao Mcdonough MD / Chao Mcdonough MD Interpreting Provider: Caho Mcdonough MD - EKG Data EKG #1 EKG attestation: Yes I reviewed and interpreted this EKG. EKG results narrative: EKG shows a normal sinus rhythm with ventricular rate of 62. No ST segment elevation or depression. No arrhythmia or ectopy. Normal EKG. No significant change from prior EKG dated 10/01/2018. Critical Care Time Critical Care Time: Yes Total Critical Care Time: 35 Attestation: Critical care performed: Time is exclusive of separately billable procedures. Time includes: direct patient care, patient reassessment, coordination of patient care, interpretation of data (laboratory data, radiology data, and respiratory data), review of patient's medical records, medical consultation and documentation of patient care. Procedures included in critical care time: Procedures excluded from critical care time: Attestation Statement - Attestation Attestation: IMarshall MD, personally evaluated this patient and discussed their management with the resident physician. I reviewed the resident's note and agree with the documented findings, medical decision making, and plan of care. I reviewed the residents documentation and agree with the residents assessment and plan of care. I have personally had face to face time with the patient. I personally supervised and was present for the osman/critical portions of the following procedures completed by the resident: EKG interpretation. 68-year-old female presents to the emergency department with a complaint of increased shortness of breath for the past several days but significantly worse today. She states when she woke up this morning she just could not get her breath. She has a history of CHF and possibly COPD. She is on home oxygen at 4 L/m by nasal cannula. She states that she has to sleep propped up on 3 pillows. She has noticed some increased swelling of her feet and ankles. She denies any chest pain. Some nonproductive cough. No fever. On examination patient is a well-developed well-nourished well-appearing elderly female in no acute distress. She is alert and oriented 3. There is no cyanosis or diaphoresis. Breath sounds are decreased bilaterally with a few bibasilar rales. No wheezes noted. Heart is regular rate and rhythm. Abdomen is soft and nontender with normal bowel sounds. There is 1+ pitting edema of the lower extremities bilaterally. Edema is slightly worse on the right second patria to a recent right ankle sprain. EKG shows a normal sinus rhythm with ventricular rate of 62. No ST segment elevation or depression. No arrhythmia or ectopy. Normal EKG. No significant change from prior EKG dated 10/01/2018. Chest x-ray shows mild pulmonary edema. Labs reviewed. Elevated troponin at 0.15. BNP 271 which is more than double her previous highest value. Patient received DuoNeb treatments. She also received Lasix 40 mg IV. The hospitalist, Dr. Beck, was consulted and accepted admission of the patient.
[2018-10-29 00:50] LABS: Basophils % 0.4 %; Eosinophils # 0.2 K/mcL (0.0-0.6); Eosinophils % 3.4 %; Hematocrit 32.1 % (35.3-44.9); Hemoglobin 9.7 g/dL (11.5-15.4); Immature Granulocytes % 0.2 % (0-4); Lymphocytes % 18.9 %; Mean Corpuscular HGB Conc 30.2 g/dL (31.6-35.5); Mean Corpuscular Hemoglobin 26.9 pg (28.0-33.3); Mean Corpuscular Volume 88.9 fL (83.0-100.0); Mean Platelet Volume 10.5 fL (9.4-12.4); Monocytes # 0.5 K/mcL (0.0-1.3); Monocytes % 8.8 %; Neutrophils # 3.7 K/mcL (1.6-8.9); Platelet Count 197 K/mcL (140-400); Red Blood Count 3.61 M/mcL (3.82-4.97); Red Cell Distribution Width 12.9 % (11.5-14.5); Segmented Neutrophils % 68.3 %; White Blood Count 5.3 K/mcL (4.3-11.1)
[2018-10-29 01:18] LABS: BUN/Creatinine Ratio 31 (6-26); Blood Urea Nitrogen 29 mg/dL (8-23); Calcium 9.5 mg/dL (8.6-10.3); Carbon Dioxide 40 mEq/L (23-29); Chloride 92 mEq/L (98-107); Glucose 246 mg/dL (70-105); Osmolality,Calculated 296 (280-300); Potassium 3.6 mEq/L (3.5-5.1); Sodium 136 mEq/L (136-145); Troponin I 0.15 ng/mL (< 0.04); eGFR For African Americans > 60 (> 60); eGFR For Non-African Americans > 60 (> 60)
[2018-10-29] MEDS ORDERED: Aspirin 325 MG TABLET PO ONE (01:19)
[2018-10-29] MEDS ORDERED: Dextrose Gel 15 GM/37.5 ML TUBE PO PRN ×2 (02:58)
[2018-10-29] MEDS ORDERED: *HR* Dextrose 50 % in Water (Syg) 50 ML SYRINGE IVP PRN (02:58)
[2018-10-29] MEDS ORDERED: Acetaminophen 325 MG TABLET PO PRN (02:59)
--- NOTE | 2018-10-29 03:33 | Internal Med History&Physical ---
Date of Encounter: 10/29/18 Time of Encounter: 03:33 Internal Medicine - H&P: HPI Chief complaint: SOB Admitted From: Home Plans for Post Hospital Care: Home History of present illness: Jake Lloyd is a 68 year old woman with hypertension, hyperlipidemia, diabetes, coronary artery disease status post 2 stents and chronic hypoxic respiratory failure on home oxygen suspected secondary to COPD based on her past smoking history is as he emergency room complaining of worsening of her baseline shortness of breath stating that while she has been more and more short of breath over the last few days requiring an increase in her oxygen from 2L to 4L, she woke up acutely worse this morning unable to catch her breath and feeling very tight. She denied associated chest pain but admits to bothersome dry cough that also started today. She denies associated fever, chills or diaphoresis. She also reports increasing leg swelling. In the ER she was found to have labored breathing that improved with nebulizer therapy. Blood work revealed a troponin of 0.15 although her EKG revealed no signs of acute ischemic disease. She was given loading dose of aspirin. He was also given a dose of furosemide after her chest x-ray showed signs of pulmonary edema. She is admitted for further care. Vitals: Reviewed General: Obese white female sitting up in bed speaking in full sentences in no acute distress. Skin: Warm and dry. HEENT: Moist mucous membranes. + conjunctivae pallor. Neck: No lymphadenopathy. No carotid bruits. No palpable thyroid. Chest: Diminished thoracic expansion. Fine crackles on auscultation of both lung bases. Heart: Normal S1 & S2; rhythmic. Abdomen: Non-distended, soft and non-tender to palpation. No peritoneal reaction. Extremities: 1-2+ pitting edema in both lower legs with the right leg is circumferentially larger than the left and notably tender to palpation. Neurological: Awake, alert and oriented to person, place and time. No focal deficits. Psych: Affect appropriate. Assessment/Plan 1. Acute on chronic hypoxic respiratory failure: Appears to be secondary to heart failure decompensation given the increased peripheral and pulmonary edema but cannot rule out an associated component of COPD. Will keep her on supplemental oxygen as needed, round the clock nebulizer therapy, systemic steroids as well as IV diuretic therapy. 2. Elevated troponin: Likely secondary to stress response and myocardial strain in the setting of heart failure, seemingly more diastolic in nature. Will monitor trend however to ensure stability. 3. Ischemic cardiomyopathy: Has a history of 2 MIs with stents. Will continue ASA/statin. 4. COPD: Suspected based on smoking history and oxygen requirements but is yet to undergo a formal PFT. On nebulizer therapy. 5. Diabetes: Will hold oral agents and place on insulin sliding scale. Past Med Surg Social Fam HX - Past Medical History Medical history: CHF, COPD, coronary artery disease, diabetes, hyperlipidemia, hypertension, myocardial infarction, other Additional medical history: DDD. sciatica Psychiatric history: anxiety, depression - Past Surgical History Surgical History: non-contributory Additional surgical history: cardiac stent x2. right carpal tunnel release - Social History Smoking Status: Former smoker Smokeless Tobacco Status: No Alcohol use: none Drug use: none - Family History Mother Name: Tarah Age: 84 Living Status: Still Living Hx Family Cardiac Disorders: Yes Hx Family Respiratory Disorders: Yes Hx Family Cancer: No Hx Family GI Disorders: Yes Hx Family Endocrine Disorder: Yes Hx Family Neurologic Disorders: Yes Internal Medicine - H&P: Meds Albuterol Sulfate [Ventolin Hfa] 18 gm IH QID 05/09/18 [History] Aspirin [Adult Aspirin Regimen] 81 mg PO DAILY 05/09/18 [History] Carvedilol [Coreg] 25 mg PO BID 05/09/18 [History] FLUoxetine HCl [Sarafem] 20 mg PO DAILY 05/09/18 [History] Glimepiride [Amaryl] 4 mg PO QAM 05/09/18 [History] Metformin HCl [Glucophage] 1,000 mg PO BIDWM 05/09/18 [History] Pravastatin Sodium [Pravachol] 80 mg PO DAILY 05/09/18 [History] traZODone [TraZODone] 50 mg PO HS 05/09/18 [History] Allergy/AdvReac Type Severity Reaction Status Date / Time No Known Allergies Allergy Verified 10/28/18 23:59 All Systems PM: A 10-system review of systems was performed and is negative for pertinent findings except as documented above in the HPI. - Constitutional Vitals: Temp Pulse Resp BP Pulse Ox 99.6 F 65 24 156/59 100 10/29/18 00:05 10/29/18 01:00 10/29/18 01:00 10/29/18 01:00 10/29/18 01:00 Exam: . Internal Med - H&P Results - Labs CBC & Chem 7: 10/29/18 00:39 10/29/18 00:39 Labs: Short CBC 10/29/18 Range/Units 00:39 WBC 5.3 (4.3-11.1) K/mcL Hgb 9.7 L (11.5-15.4) g/dL Hct 32.1 L (35.3-44.9) % Plt Count 197 (140-400) K/mcL Neutrophils # 3.7 (1.6-8.9) K/mcL BMP 10/29/18 00:39 Sodium 136 Potassium 3.6 Chloride 92 L Carbon Dioxide 40 H* BUN 29 H Creatinine 0.93 Glucose 246 H Calcium 9.5 Cardiac Enzymes 10/29/18 Range/Units 00:39 Troponin I 0.15 H* (< 0.04) ng/mL - Impressions ITS Impressions Chest X-Ray 10/29/18 00:27 IMPRESSION: Mild pulmonary edema. D/ / Chao Mcdonough MD / Chao Mcdonough MD Interpreting Provider: Chao Mcdonough MD - Time Spent With Patient Total time spent is greater than 50% in coordination of care (as documented) at patient's floor/unit and/or counseling patient: Greater than 35 minutes
[2018-10-29] MEDS: Ipratropium/Albuterol Neb 3 ML IH SCH ×4 (04:23→16:14)
[2018-10-29] MEDS: *HR* Heparin 5,000 UNIT/ML VIAL SQ SCH ×3 (05:10→21:05)
[2018-10-29] MEDS: Aspirin Enteric Coated 81 MG Tablet PO SCH (08:00)
[2018-10-29] MEDS: FLUoxetine 20 MG CAPSULE PO SCH (08:00)
[2018-10-29] MEDS: Insulin LISPRO 300 UNITS/3 ML VIAL SQ SCH ×4 (08:01→21:05)
--- NOTE | 2018-10-29 08:18 | Event Note ---
Date of Encounter: 10/29/18 Time of Encounter: 08:00 Seen and assessed. Agree with plan per night team Plan Acute worsening of chronic diastolic CHF. Continue lasix. Improving Acute worsening of chronic respiratory failure likely 2/2 to acute CHF. See #1
[2018-10-29] MEDS: Furosemide 40 MG/4 ML VIAL IVP SCH ×2 (08:41→16:38)
[2018-10-29] MEDS ORDERED: Furosemide 40 MG/4 ML VIAL IVP SCH (09:00)
[2018-10-29] MEDS: traZODone 50 MG TABLET PO SCH (21:05)
[2018-10-30] MEDS: *HR* Heparin 5,000 UNIT/ML VIAL SQ SCH ×3 (05:45→21:04)
[2018-10-30 07:30] LABS: Basophils % 0.2 %; Eosinophils # 0.2 K/mcL (0.0-0.6); Eosinophils % 2.8 %; Hematocrit 32.9 % (35.3-44.9); Hemoglobin 9.9 g/dL (11.5-15.4); Immature Granulocytes % 0.3 % (0-4); Lymphocytes # 1.4 K/mcL (0.6-4.6); Mean Corpuscular HGB Conc 30.1 g/dL (31.6-35.5); Mean Corpuscular Hemoglobin 26.4 pg (28.0-33.3); Mean Corpuscular Volume 87.7 fL (83.0-100.0); Mean Platelet Volume 10.8 fL (9.4-12.4); Monocytes # 0.5 K/mcL (0.0-1.3); Monocytes % 8.8 %; Neutrophils # 3.7 K/mcL (1.6-8.9); Platelet Count 219 K/mcL (140-400); Red Blood Count 3.75 M/mcL (3.82-4.97); Red Cell Distribution Width 13.4 % (11.5-14.5); Segmented Neutrophils % 63.9 %; White Blood Count 5.8 K/mcL (4.3-11.1)
[2018-10-30] MEDS: Aspirin Enteric Coated 81 MG Tablet PO SCH (07:50)
[2018-10-30] MEDS: FLUoxetine 20 MG CAPSULE PO SCH (07:50)
[2018-10-30] MEDS: Furosemide 40 MG/4 ML VIAL IVP SCH (07:51)
[2018-10-30] MEDS: Insulin LISPRO 300 UNITS/3 ML VIAL SQ SCH ×4 (07:51→21:04)
--- NOTE | 2018-10-30 07:55 | Internal Med Progress Note ---
Hospitalist Progress Note - Encounter Date of Encounter: 10/30/18 Time of Encounter: 07:50 - Subjective Interval History: No acute events overnight - Exam Vitals: Temp Pulse Resp BP Pulse Ox 98.5 F 52 18 120/54 92 10/30/18 07:23 10/30/18 07:23 10/30/18 07:23 10/30/18 07:23 10/30/18 07:23 Exam: General appearance: Present: A&O X 3, no acute distress Head exam: Present: normocephalic Respiratory exam: decreased breath sounds Cardiovascular exam: Present: RRR, +S1, +S2. Absent: diastolic murmur, gallop, rubs, systolic murmur GI/Abdominal exam: Soft, NT, ND, +BS Extremities exam: Absent: pedal edema Neurological exam: Present: alert, oriented X3, no focal deficits. Absent: altered - Assessment and Plan (1) Acute respiratory failure with hypoxia Current Visit: Yes Status: Acute Assessment and Plan: Patient comes in with shortness of breath and increased oxygen needs from her baseline with CXR showing pulmonary edema Likely secondary to combination of diastolic CHF and COPD Diuresis as tolerated, nebs and steroids (2) CHF exacerbation Current Visit: Yes Status: Acute Assessment and Plan: Has pulmonary edema and feet swelling likely secondary to acute worsening of chronic diastolic CHF Continue lasix as tolerated. Lasix held today for ALIN (3) Diabetes Current Visit: Yes Status: Acute Assessment and Plan: Continue insulin and monitor fingersticks (4) COPD exacerbation Current Visit: Yes Status: Acute Assessment and Plan: Continue on nebs and steroids (5) DVT prophylaxis Current Visit: Yes Status: Acute Assessment and Plan: Heparin sc - Time Spent with Patient Total time spent is greater than 50% in coordination of care (as documented) at patient's floor/unit and/or counseling patient: Internal Medicine: Result - Labs CBC & Chem 7: 10/30/18 07:07 10/30/18 07:07 - Impressions Impressions Echocardiogram Limited Views 10/29/18 08:20 Impressions: LVEF 60-65%. No segmental dysfunction. Normal LV chamber size, wall thickness and function. Left Ventricular Wall Motion: Rest Echo Findings All wall segments showed normal motion. Findings: Study Quality * Technically adequate exam. ECG Findings * Normal sinus rhythm. Left Ventricle * LVEF 60-65%. * No segmental dysfunction. * Normal LV chamber size, wall thickness and function. Consult Discharge Plan - Plan Referrals: Arie Friend MD [Primary Care Provider] - (2) CHF exacerbation Qualifiers: Heart failure type: unspecified Qualified Code(s): I50.9 - Heart failure, unspecified (3) Diabetes Qualifiers: Diabetes mellitus type: type 2 Qualified Code(s): E11.9 - Type 2 diabetes mellitus without complications
[2018-10-30 08:08] LABS: Calcium 9.8 mg/dL (8.6-10.3); Magnesium 1.8 mg/dL (1.6-2.6); Phosphorous 4.6 mg/dL (2.7-4.5); Potassium 3.7 mEq/L (3.5-5.1)
[2018-10-30] MEDS ORDERED: acetaZOLAMIDE 250 MG TABLET PO ONE (08:46)
[2018-10-30] MEDS ORDERED: predniSONE 20 MG TABLET PO SCH (09:00)
[2018-10-30] MEDS: Acetylcysteine 10% 2 ML INHSOL IH SCH ×3 (10:10→22:37)
[2018-10-30] MEDS: Albuterol 2.5 MG/3 ML NEBULIZER IH SCH ×3 (10:10→22:36)
[2018-10-30] MEDS: MethylPREDNISolone 40 MG/ML VIAL IVP SCH (16:28)
--- NOTE | 2018-10-30 21:09 | Electrocardiograph Report ---
[place] [id number] Test Date: 2018-10-28 Pat Name: Jake Lloyd Department: EXAM22 Room: 2A43 Gender: F [employer] Farm[employer]: : 1950 Requested By: Yannick Naranjo Order Number: [id number] Reading MD: Silvino Hayes Measurements Intervals [place] Rate: 62 P: -22 OR: 130 QRS: 71 QRSD: 100 T: 46 QT: 459 QTc: 467 Interpretive Statements Sinus rhythm Baseline wander in lead(s) III aVL aVF V2 Electronically Signed On 10-30-2018 21:07:17 EDT by Silvino Hayes
[2018-10-30] MEDS: traZODone 50 MG TABLET PO SCH (23:13)
[2018-10-31] MEDS: *HR* Heparin 5,000 UNIT/ML VIAL SQ SCH (05:52)
[2018-10-31] MEDS: MethylPREDNISolone 40 MG/ML VIAL IVP SCH (05:53)
[2018-10-31 06:51] VITALS: BP 145/67
[2018-10-31] MEDS: Albuterol 2.5 MG/3 ML NEBULIZER IH SCH (07:24)
[2018-10-31] MEDS: FLUoxetine 20 MG CAPSULE PO SCH (07:26)
[2018-10-31] MEDS: Aspirin Enteric Coated 81 MG Tablet PO SCH (07:26)
[2018-10-31] MEDS: Insulin LISPRO 300 UNITS/3 ML VIAL SQ SCH (07:26)
--- NOTE | 2018-10-31 08:39 | Discharge Summary ---
Date of Encounter: 10/31/18 Time of Encounter: 08:30 - Discharge Diagnosis (1) Acute respiratory failure with hypoxia Priority: Primary Status: Acute Assessment and Plan: 68 year old woman with hypertension, hyperlipidemia, diabetes, coronary artery disease status post 2 stents and chronic hypoxic respiratory failure on home oxygen suspected secondary to COPD based on her past smoking history is as he emergency room complaining of worsening of her baseline shortness of breath stating that while she has been more and more short of breath over the last few days requiring an increase in her oxygen from 2L to 4L, she woke up acutely worse this morning unable to catch her breath and feeling very tight. She denied associated chest pain but admits to bothersome dry cough that also started today. Patient comes in with shortness of breath and increased oxygen needs from her baseline with CXR showing pulmonary edema likely secondary to a combination of acute worsening of chronic diastolic CHF and COPD exacerbation. She was improved on diuresis and nebs and steroids. She was discharged on 2L of oxygen at rest and 3L on ambulation. 35 minutes was spent discharging this patient (2) CHF exacerbation Priority: Primary Status: Acute Qualifiers: Heart failure type: unspecified Qualified Code(s): I50.9 - Heart failure, unspecified (3) Diabetes Priority: Primary Status: Acute Qualifiers: Diabetes mellitus type: type 2 Qualified Code(s): E11.9 - Type 2 diabetes mellitus without complications (4) COPD exacerbation Priority: Primary Status: Acute (5) DVT prophylaxis Priority: Primary Status: Acute Hospital course: Ms. Lloyd is a 68 year old female - Time Spent with Patient Total time spent providing and/or coordinating discharge services: - Discharge Medications Prescriptions: New Furosemide [Lasix] 40 mg PO DAILY #30 tablet predniSONE [PredniSONE] 40 mg PO DAILY 3 Days #6 tablet Continued Glimepiride [Amaryl] 4 mg PO QAM traZODone [TraZODone] 50 mg PO HS Metformin HCl [Glucophage] 1,000 mg PO BIDWM Pravastatin Sodium [Pravachol] 80 mg PO DAILY Aspirin [Adult Aspirin Regimen] 81 mg PO DAILY Carvedilol [Coreg] 12.5 mg PO BID Albuterol Sulfate [Ventolin Hfa] 1 puff IH QID PRN PRN Reason: Shortness Of Breath FLUoxetine HCl [Sarafem] 20 mg PO DAILY Discontinued Furosemide [Lasix] 20 mg PO QAM Home Medications: Albuterol Sulfate [Ventolin Hfa] 1 puff IH QID PRN 05/09/18 [History] Aspirin [Adult Aspirin Regimen] 81 mg PO DAILY 05/09/18 [History] Carvedilol [Coreg] 12.5 mg PO BID 05/09/18 [History] FLUoxetine HCl [Sarafem] 20 mg PO DAILY 05/09/18 [History] Glimepiride [Amaryl] 4 mg PO QAM 05/09/18 [History] Metformin HCl [Glucophage] 1,000 mg PO BIDWM 05/09/18 [History] Pravastatin Sodium [Pravachol] 80 mg PO DAILY 05/09/18 [History] traZODone [TraZODone] 50 mg PO HS 05/09/18 [History] Furosemide [Lasix] 40 mg PO DAILY #30 tablet 10/31/18 [Rx] predniSONE [PredniSONE] 40 mg PO DAILY 3 Days #6 tablet 10/31/18 [Rx] Allergies/Adverse Reactions: Allergy/AdvReac Type Severity Reaction Status Date / Time No Known Allergies Allergy Verified 10/28/18 23:59 Date of admission: 10/29/18 03:02 Primary care physician: Arie Friend MD Consults: 10/30/18 14:38 Consult to Nurse Navigator [CONS] Routine Comment: copd - Constitutional Vitals: Temp Pulse Resp BP Pulse Ox 97.8 F 47 18 145/67 93 10/31/18 06:49 10/31/18 06:49 10/31/18 07:26 10/31/18 06:49 10/31/18 07:26 Exam: General appearance: Present: A&O X 3, no acute distress Head exam: Present: normocephalic Respiratory exam: decreased breath sounds Cardiovascular exam: Present: RRR, +S1, +S2. Absent: diastolic murmur, gallop, rubs, systolic murmur GI/Abdominal exam: Soft, NT, ND, +BS Extremities exam: Absent: pedal edema Neurological exam: Present: alert, oriented X3, no focal deficits. Absent: altered - Patient Status Disposition: Home, Self-Care Condition: Fair - Discharge Instructions Instructions: Furosemide (By mouth), Prednisone (By mouth) Follow Up With: Arie Friend MD [Primary Care Provider] - 11/07/18 9:45 am (Please follow up as escobar...)
[2018-10-31] MEDS ORDERED: Furosemide 40 MG TABLET PO SCH (09:00)
[2018-10-31 09:14] LABS: Basophils % 0.2 %; Hematocrit 35.8 % (35.3-44.9); Hemoglobin 10.8 g/dL (11.5-15.4); Immature Granulocytes % 0.5 % (0-4); Lymphocytes # 0.5 K/mcL (0.6-4.6); Lymphocytes % 8.7 %; Mean Corpuscular HGB Conc 30.2 g/dL (31.6-35.5); Mean Corpuscular Hemoglobin 26.5 pg (28.0-33.3); Mean Corpuscular Volume 87.7 fL (83.0-100.0); Monocytes # 0.2 K/mcL (0.0-1.3); Monocytes % 3.8 %; Neutrophils # 5.3 K/mcL (1.6-8.9); Platelet Count 238 K/mcL (140-400); Red Blood Count 4.08 M/mcL (3.82-4.97); Red Cell Distribution Width 13.2 % (11.5-14.5); Segmented Neutrophils % 86.8 %; White Blood Count 6.1 K/mcL (4.3-11.1)
[2018-10-31 09:27] LABS: BUN/Creatinine Ratio 33 (6-26); Blood Urea Nitrogen 34 mg/dL (8-23); Calcium 9.8 mg/dL (8.6-10.3); Carbon Dioxide 37 mEq/L (23-29); Chloride 90 mEq/L (98-107); Glucose 333 mg/dL (70-105); Magnesium 1.8 mg/dL (1.6-2.6); Osmolality,Calculated 299 (280-300); Phosphorous 4.1 mg/dL (2.7-4.5); Potassium 3.5 mEq/L (3.5-5.1); Sodium 134 mEq/L (136-145); eGFR For African Americans > 60 (> 60); eGFR For Non-African Americans 54 (> 60)
== END 2018-10-31 11:05 | disposition home or self-care (01) | DRG 291 ==
LOC: EMEROOARM 23:49 → 2ANU 23:49
PROVIDERS: ADMIT Internal Medicine; ATTEND Internal Medicine

== ENCOUNTER 2020-05-23 02:24 | Inpatient (IN) ==
[2020-05-23] MEDS ORDERED: Ondansetron ODT 4 MG TAB.RAPDIS SL PRN (06:11)
[2020-05-23] MEDS ORDERED: Acetaminophen 325 MG TABLET PO PRN (06:11)
[2020-05-23] MEDS ORDERED: Naloxone 0.4 MG/ML INJ IVP PRN (06:11)
[2020-05-23] MEDS ORDERED: Ipratropium/Albuterol Neb 3 ML IH PRN (06:13)
[2020-05-23] MEDS ORDERED: D5% in Water 1,000 ML IVC PRN (06:28)
[2020-05-23] MEDS ORDERED: Dextrose Gel 15 GM/37.5 ML TUBE PO PRN ×2 (06:28)
[2020-05-23] MEDS ORDERED: *HR* Dextrose 50 % in Water (Vial) 50 ML VIAL IVP PRN (06:28)
[2020-05-23 08:13] LABS: Alanine Aminotransferase 60 Units/L (7-52); Albumin 4.1 g/dL (3.5-5.7); Albumin/Globulin Ratio 1.5 (1.1-2.2); Alkaline Phosphatase 67 Units/L (34-104); Aspartate Amino Transferase 51 Units/L (13-39); BUN/Creatinine Ratio 34 (6-26); Bilirubin,Total 0.3 mg/dL (0.3-1.0); Blood Urea Nitrogen 37 mg/dL (8-23); Calcium 9.5 mg/dL (8.6-10.3); Carbon Dioxide 33 mEq/L (23-29); Chloride 98 mEq/L (98-107); Globulin 2.8 g/dL (2.4-3.5); Glucose 261 mg/dL (70-105); Magnesium 2.2 mg/dL (1.6-2.6); Osmolality,Calculated 306 (280-300); Phosphorous 4.1 mg/dL (2.7-4.5); Potassium 4.9 mEq/L (3.5-5.1); Sodium 139 mEq/L (136-145); Total Protein 6.9 g/dL (6.4-8.9); eGFR For African Americans > 60 (> 60); eGFR For Non-African Americans 50 (> 60)
[2020-05-23 08:30] LABS: Eosinophils % 0.3 %; Hematocrit 32.2 % (35.3-44.9); Hemoglobin 9.4 g/dL (11.5-15.4); Immature Granulocytes % 0.3 % (0-4); Lymphocytes # 0.5 K/mcL (0.6-4.6); Mean Corpuscular HGB Conc 29.2 g/dL (31.6-35.5); Mean Corpuscular Hemoglobin 25.3 pg (28.0-33.3); Mean Corpuscular Volume 86.6 fL (83.0-100.0); Mean Platelet Volume 10.4 fL (9.4-12.4); Monocytes # 0.1 K/mcL (0.0-1.3); Monocytes % 1.8 %; Neutrophils # 3.3 K/mcL (1.6-8.9); Platelet Count 222 K/mcL (140-400); Red Blood Count 3.72 M/mcL (3.82-4.97); Red Cell Distribution Width 13.7 % (11.5-14.5); Segmented Neutrophils % 84.6 %; White Blood Count 3.8 K/mcL (4.3-11.1)
[2020-05-23] MEDS: Insulin LISPRO 300 UNITS/3 ML VIAL SUBQ SCH ×5 (08:56→20:50)
[2020-05-23] MEDS: methylPREDNISolone 125 MG/2 ML VIAL IVP SCH ×3 (08:56→23:33)
[2020-05-23] MEDS ORDERED: Azithromycin 500 MG in 0.9 % Sodium Chloride 250 ML IVPB SCH (09:00)
[2020-05-23 09:14] LABS: VBG HCO3 36 mEq/L (21-27); VBG PCO2 67 mmHg (41-51); VBG PH 7.34 pH Units (7.32-7.42); VBG PO2 188 mmHg (25-50)
[2020-05-23 13:19] LABS: VBG HCO3 34 mEq/L (21-27); VBG PCO2 57 mmHg (41-51); VBG PH 7.38 pH Units (7.32-7.42); VBG PO2 108 mmHg (25-50)
[2020-05-23] MEDS: carvediloL 25 MG TABLET PO SCH (16:42)
[2020-05-23] MEDS: cefTRIAXone 2,000 MG in Water for inj. (sterile) 20 ML IVP SCH (16:42)
[2020-05-23] MEDS: *HR* Heparin 5,000 UNIT/ML VIAL SQ SCH (17:11)
[2020-05-23] MEDS: traZODone 50 MG TABLET PO SCH (23:55)
[2020-05-24 02:01] LABS: Hematocrit 30.3 % (35.3-44.9); Hemoglobin 8.9 g/dL (11.5-15.4); Mean Corpuscular HGB Conc 29.4 g/dL (31.6-35.5); Mean Corpuscular Hemoglobin 25.4 pg (28.0-33.3); Mean Corpuscular Volume 86.3 fL (83.0-100.0); Mean Platelet Volume 10.7 fL (9.4-12.4); Platelet Count 211 K/mcL (140-400); Red Blood Count 3.51 M/mcL (3.82-4.97); Red Cell Distribution Width 13.9 % (11.5-14.5); White Blood Count 7.1 K/mcL (4.3-11.1)
[2020-05-24 02:04] LABS: INR 1.2; Prothrombin Time 13.7 Seconds (9.4-12.1)
[2020-05-24 02:21] LABS: Calcium 9.3 mg/dL (8.6-10.3); Potassium 4.6 mEq/L (3.5-5.1)
[2020-05-24] MEDS: *HR* Heparin 5,000 UNIT/ML VIAL SQ SCH ×2 (06:13→17:47)
[2020-05-24] MEDS: Aspirin Enteric Coated 81 MG Tablet PO SCH (07:42)
[2020-05-24] MEDS: FLUoxetine 20 MG CAPSULE PO SCH (07:42)
[2020-05-24] MEDS: Furosemide 40 MG TABLET PO SCH (07:43)
[2020-05-24] MEDS: Insulin LISPRO 300 UNITS/3 ML VIAL SUBQ SCH ×4 (07:44→22:13)
[2020-05-24] MEDS: methylPREDNISolone 125 MG/2 ML VIAL IVP SCH ×3 (07:44→22:42)
[2020-05-24] MEDS: carvediloL 25 MG TABLET PO SCH ×2 (08:53→17:22)
[2020-05-24] MEDS: cefTRIAXone 2,000 MG in Water for inj. (sterile) 20 ML IVP SCH (12:13)
[2020-05-24] MEDS ORDERED: Mag Hydrox/Al Hydrox/Simeth 30 ML UDC PO PRN (14:12)
[2020-05-24] MEDS: traZODone 50 MG TABLET PO SCH (22:42)
[2020-05-25 03:10] LABS: Hematocrit 30.9 % (35.3-44.9); Hemoglobin 9.2 g/dL (11.5-15.4); Mean Corpuscular HGB Conc 29.8 g/dL (31.6-35.5); Mean Corpuscular Hemoglobin 25.5 pg (28.0-33.3); Mean Corpuscular Volume 85.6 fL (83.0-100.0); Mean Platelet Volume 11.1 fL (9.4-12.4); Platelet Count 232 K/mcL (140-400); Red Blood Count 3.61 M/mcL (3.82-4.97); Red Cell Distribution Width 13.7 % (11.5-14.5); White Blood Count 7.5 K/mcL (4.3-11.1)
[2020-05-25 03:30] LABS: Calcium 9.2 mg/dL (8.6-10.3); Potassium 4.6 mEq/L (3.5-5.1)
[2020-05-25] MEDS: *HR* Heparin 5,000 UNIT/ML VIAL SQ SCH ×3 (05:18→20:44)
[2020-05-25] MEDS: carvediloL 25 MG TABLET PO SCH ×2 (07:47→17:09)
[2020-05-25] MEDS: Furosemide 40 MG TABLET PO SCH (07:47)
[2020-05-25] MEDS: FLUoxetine 20 MG CAPSULE PO SCH (07:47)
[2020-05-25] MEDS: Aspirin Enteric Coated 81 MG Tablet PO SCH (07:48)
[2020-05-25] MEDS: methylPREDNISolone 125 MG/2 ML VIAL IVP SCH ×2 (07:48→17:10)
[2020-05-25] MEDS: Insulin LISPRO 300 UNITS/3 ML VIAL SUBQ SCH ×4 (07:52→20:44)
[2020-05-25] MEDS: cefTRIAXone 2,000 MG in Water for inj. (sterile) 20 ML IVP SCH (11:59)
[2020-05-25] MEDS ORDERED: Insulin DETEMIR 100 UNIT/ML X5UNITS SUBQ ONE (17:02)
[2020-05-25] MEDS: traZODone 50 MG TABLET PO SCH (22:33)
[2020-05-26 05:00] LABS: Hematocrit 33.8 % (35.3-44.9); Hemoglobin 10.3 g/dL (11.5-15.4); Mean Corpuscular HGB Conc 30.5 g/dL (31.6-35.5); Mean Corpuscular Hemoglobin 25.8 pg (28.0-33.3); Mean Corpuscular Volume 84.5 fL (83.0-100.0); Mean Platelet Volume 10.4 fL (9.4-12.4); Platelet Count 261 K/mcL (140-400); Red Cell Distribution Width 13.9 % (11.5-14.5); White Blood Count 8.7 K/mcL (4.3-11.1)
[2020-05-26] MEDS: *HR* Heparin 5,000 UNIT/ML VIAL SQ SCH ×2 (05:13→12:54)
[2020-05-26 05:19] LABS: BUN/Creatinine Ratio 46 (6-26); Blood Urea Nitrogen 47 mg/dL (8-23); Calcium 9.3 mg/dL (8.6-10.3); Carbon Dioxide 36 mEq/L (23-29); Chloride 98 mEq/L (98-107); Glucose 119 mg/dL (70-105); Osmolality,Calculated 301 (280-300); Potassium 4.1 mEq/L (3.5-5.1); Sodium 139 mEq/L (136-145); eGFR For African Americans > 60 (> 60); eGFR For Non-African Americans 53 (> 60)
[2020-05-26 05:26] LABS: VBG HCO3 35 mEq/L (21-27); VBG PCO2 53 mmHg (41-51); VBG PH 7.44 pH Units (7.32-7.42); VBG PO2 112 mmHg (25-50)
[2020-05-26 05:54] LABS: Estimated Average Glucose 180 mg/dl; Hemoglobin A1C 7.9 %
[2020-05-26] MEDS: Insulin LISPRO 300 UNITS/3 ML VIAL SUBQ SCH ×2 (07:55→12:53)
[2020-05-26] MEDS ORDERED: carvediloL 6.25 MG TABLET PO SCH (08:00)
[2020-05-26] MEDS: Aspirin Enteric Coated 81 MG Tablet PO SCH (08:04)
[2020-05-26] MEDS: FLUoxetine 20 MG CAPSULE PO SCH (08:04)
[2020-05-26] MEDS: Furosemide 40 MG TABLET PO SCH (08:04)
[2020-05-26] MEDS ORDERED: Insulin DETEMIR 100 UNIT/ML X5UNITS SUBQ SCH (09:00)
[2020-05-26] MEDS ORDERED: NIFEdipine XL (24 HR) 60 MG TAB.ER.24 PO SCH (09:00)
[2020-05-26] MEDS ORDERED: predniSONE 20 MG TABLET PO SCH (09:00)
[2020-05-26] MEDS: cefTRIAXone 2,000 MG in Water for inj. (sterile) 20 ML IVP SCH (12:53)
[2020-05-26 16:19] VITALS: BP 156/65
== END 2020-05-26 17:50 | disposition home or self-care (01) | DRG 190 ==
LOC: 2NNU → SUATTDRO 05:24
PROVIDERS: ADMIT Student in an Organized Health Care Education/Training Program; ATTEND Pharmacist